=== PATIENT | male | born 1940 | race Caucasian/White ===

== ENCOUNTER 2017-12-26 01:51 | Day surgery (SDC) | payer MEDICARE, OTHER ==
[~2017-12-26] VITALS: Ht 182.9 cm; Wt 78.0 kg
[~2017-12-26 01:51] MED LIST: ACET500T68 PO; ASPI-1471 PO; FERR160T25 PO; HYDR-2966 PO; POTA10CA40 PO; PROP60TA15 PO; VIT1CAPS34 PO
[2017-12-26 10:00] VITALS: BP 168/95
[2017-12-26] MEDS ORDERED: PROPOFOL EMUL(*) 10MG/ML 20 ML 20 ML ONE (10:21)
[2017-12-26] MEDS ORDERED: LIDOCAINE/SOD BICARB 8.4% SYR ID ONE (10:50)
[2017-12-26] MEDS ORDERED: NORMOSOL R SOLN(*) 1000 ML BAG 1,000 ML IV PRN (10:50)
[2017-12-26 12:07] VITALS: BP 111/66
[2017-12-26 12:10] VITALS: BP 124/75
[2017-12-26 12:40] VITALS: BP 144/64
[2017-12-26 12:46] VITALS: BP 138/72
== END 2017-12-26 12:52 | disposition home or self-care (01) ==
LOC: OR 01:51
PROVIDERS: ATTEND Family Medicine
DX: Z12.11 Encounter for screening for malignant neoplasm of colon (principal)
CPT/HCPCS: 00812; G0121; J2704